=== PATIENT | male | born 1975 | race Caucasian/White ===

== ENCOUNTER 2017-10-19 08:44 | Day surgery (SDC) | payer SELFPAY ==
[~2017-10-19] VITALS: Ht 190.5 cm; Wt 120.2 kg
[~2017-10-19 08:44] MED LIST: ALIVE MENS ENERGY PO
[2017-10-19] MEDS ORDERED: CARAFATE1 GM PO (11:57)
[2017-10-19] MEDS ORDERED: PROTONIX40 M2 PO (11:57)
[2017-10-19] MEDS ORDERED: REGLAN10 MG PO (11:57)
[2017-10-19 12:07] VITALS: BP 128/86
== END 2017-10-19 12:19 | disposition home or self-care (01) | DRG 379 ==
LOC: ENDO 08:44 → ORM 10:00 → ENDO 10:30
PROVIDERS: ATTEND Surgery
PROC: 0DB48ZX Excision of Esophagogastric Junction, Via Natural or Artificial Opening Endoscopic, Diagnostic (ICD-10-PCS; principal; 2017-10-19)
PROC: 0DB78ZX Excision of Stomach, Pylorus, Via Natural or Artificial Opening Endoscopic, Diagnostic (ICD-10-PCS; 2017-10-19)
PROC: 0DBN8ZX Excision of Sigmoid Colon, Via Natural or Artificial Opening Endoscopic, Diagnostic (ICD-10-PCS; 2017-10-19)
DX: K29.71 Gastritis, unspecified, with bleeding (principal); K21.9 Gastro-esophageal reflux disease without esophagitis; K22.70 Barrett's esophagus without dysplasia; K63.5 Polyp of colon; K57.30 Diverticulosis of large intestine without perforation or abscess without bleeding; Z86.010 Personal history of colon polyps